=== PATIENT | male | born 1975 | race American Indian/Alaskan Native ===

== ENCOUNTER 2019-02-13 09:27 | Inpatient (IN) | payer OTHER ==
[2019-02-13 10:24] LABS: Basophils % (Auto) 0.1 % (0.0-1.8); Hematocrit 42.2 % (35.5-45.6); Hemoglobin 14.3 gm/dl (11.8-15.2); Lymphocytes # (Auto) 1.3 K/mm3 (1.2-5.4); Lymphocytes % (Auto) 15.4 % (13.4-35.0); Mean Corpuscular HGB Conc 34 % (32-34); Mean Corpuscular Volume 80 fl (84-94); Monocytes # (Auto) 0.4 K/mm3 (0.0-0.8); Monocytes % (Auto) 4.3 % (0.0-7.3); Platelet Count 386 K/mm3 (140-440); Red Blood Count 5.27 M/mm3 (3.65-5.03); Red Cell Distribution Width 14.5 % (13.2-15.2)
[2019-02-13 10:39] LABS: Bacteria,Urine 1+ /HPF (Negative); Bilirubin,Urine NEG (Negative); Blood,Urine SM (Negative); Color,Urine Yellow (Yellow); Mucus,Urine 2+ /HPF; Urobilinogen,Urine < 2.0 mg/dL (<2.0)
[2019-02-13 10:51] LABS: Alanine Aminotransferase 14 units/L (7-56); Albumin 4.5 g/dL (3.9-5); BUN/Creatinine Ratio 8; Blood Urea Nitrogen 9 mg/dL (9-20); Calcium 9.5 mg/dL (8.4-10.2); Hemolysis Index 7
[2019-02-13] MEDS ORDERED: ZOFRAN IV ONE (11:23)
[2019-02-13] MEDS ORDERED: TORADOL IV ONE (11:23)
[2019-02-13] MEDS ORDERED: NACL 0.9% 1000 ML 1,000 ML IV ONE (11:23)
[2019-02-13] MEDS ORDERED: PEPCID IV ONE (11:23)
[2019-02-13] MEDS ORDERED: MORPHINE IV ONE (11:23)
--- NOTE | 2019-02-13 13:19 | Cat Scan Report ---
PROCEDURE: CT ABDOMEN PELVIS W CON TECHNIQUE: CT examination of the abdomen and pelvis was performed after the IV injection of iodinated nonionic contrast. CT DOSE LENGTH PRODUCT: 2807.3 mGycm HISTORY: RIGHT SIDED ABD PAIN WITH nv COMPARISONS: None . FINDINGS: No acute lung base finding. No acute fracture. Nonspecific diffusely decreased density of liver parenchyma may reflect fatty infiltration. No visual ized focal liver lesion. There is slight focal fatty sparing adjacent to the gallbladder fossa. No gallbladder wall thickening or CT evidence of gallstone. There is suggestion of slight pericholecy stic fluid, nonspecific. Normal caliber common bile duct. Normal-appearing adrenals, pancreas, and spleen. Intact normal caliber abdominal aorta and IVC. Nonspecific, smoothly marginated, simple appearing, low density bilateral renal lesions are statistic ally most likely cysts. They are too small to characterize. No renal calculus or hydronephrosis. Othe rwise normal-appearing kidneys and visible ureteral segments. Intact abdominal wall without ventral h ernia. No retroperitoneal adenopathy. No mesenteric mass. Normal-appearing stomach and duodenum. No s mall bowel distention in the abdomen and pelvis. No pelvic free fluid. Normal-appearing urinary bladder, prostate, seminal vesicles, and rectum. Dominga l-appearing cecum and terminal ileum. Nonspecific intestinal fatty mural stratification is present. It involves the descending and sigmoid colon. No free air or colonic distention. No gross ascites. There is nonspecific prominence of the appendix up to 10 mm diameter. The appendix wall appears sligh tly thickened in variable locations. Suggestion of adjacent trace fat stranding and trace pericolic g utter free fluid. This may reflect mild inflammatory change. No appendicolith. No abnormal fluid chris ection adjacent to the appendix. IMPRESSION: Nonspecific subtle findings in the region of the gallbladder and appendix may reflect mild inflammati on of either or both. Correlate with region of maximal tenderness. Suggestion of hepatic steatosis with mild focal fatty sparing adjacent to gallbladder fossa Nonspecific fatty mural stratification in the descending and sigmoid colon may be related to diet, luis dy habitus, or chronic colitis. The differential includes inflammatory bowel disease. This document is electronically signed by Baljeet Gagnon MD., February 13 2019 01:17:13 PM ET
--- NOTE | 2019-02-13 14:22 | Emergency Department Report ---
ED Abdominal Pain HPI - General Chief Complaint: Abdominal Pain Stated Complaint: STOMACH PAIN Time Seen by Provider: 02/13/19 11:15 Source: patient Mode of arrival: Ambulatory Limitations: No Limitations - History of Present Illness Initial Comments: Patient is a 43-year-old -Japanese male who is presenting with right- sided abdominal pain. Patient states that pain started late last night approximately 11PM. Patient states that the pain is 9 out of 10 in severity and progressively worsening. Patient states since he started having the pain he also has been very nauseous and vomited numerous times. Patient states he has had several bowel movements but he denies diarrhea. Patient states after vomiting his pain does subside re-flea however it didn't return. Patient denies fevers chills cough cold congestion at this time. Patient states the pain does not migrate to the back. Severity scale (0 -10): 0 - Related Data Allergies Allergy/AdvReac Type Severity Reaction Status Date / Time No Known Allergies Allergy Unverified 02/13/19 09:34 ED Review of Systems ROS: Stated complaint: STOMACH PAIN Other details as noted in HPI Comment: All other systems reviewed and negative ED Past Medical Hx - Past Medical History Previous Medical History?: No - Surgical History Past Surgical History?: No - Social History Smoking Status: Never Smoker Substance Use Type: None ED Physical Exam - General Limitations: No Limitations General appearance: alert, in no apparent distress - Head Head exam: Present: atraumatic, normocephalic - Eye Eye exam: Present: normal appearance - ENT ENT exam: Present: mucous membranes moist - Neck Neck exam: Present: normal inspection - Respiratory Respiratory exam: Present: normal lung sounds bilaterally. Absent: respiratory distress, wheezes, rales, rhonchi - Cardiovascular Cardiovascular Exam: Present: regular rate, normal rhythm, normal heart sounds. Absent: systolic murmur, diastolic murmur, rubs, gallop - GI/Abdominal GI/Abdominal exam: Present: soft, tenderness (patient's abdomen is tender in the right upper and lower quadrants.), normal bowel sounds. Absent: distended, guarding, rebound, organomegaly - Rectal Rectal exam: Present: deferred - Extremities Exam Extremities exam: Present: normal inspection - Back Exam Back exam: Present: normal inspection - Neurological Exam Neurological exam: Present: alert, oriented X3 - Psychiatric Psychiatric exam: Present: normal affect, normal mood - Skin Skin exam: Present: warm, dry, intact, normal color. Absent: rash ED Course Vital Signs 02/13/19 02/13/19 02/13/19 09:51 11:48 12:18 Temperature 97.8 F Pulse Rate 95 H Respiratory 16 18 16 Rate Blood Pressure 150/101 [Left] O2 Sat by Pulse 100 Oximetry 02/13/19 12:30 Temperature Pulse Rate Respiratory 16 Rate Blood Pressure [Left] O2 Sat by Pulse Oximetry - Reevaluation(s) Reevaluation #1: 02/13/19 14:22 Dr. Jones has been consulted and states she would like to look at the patient's films with the radiologist on staff herself and will also come to see the patient in person ED Medical Decision Making - Lab Data Result diagrams: 02/13/19 09:56 02/13/19 09:56 - Radiology Data [facility] [address] [place] [address] Cat Scan Report Signed Patient: SOFIA CABALLERO MR#: [id number] : 1975 Acct:[id number] Age/Sex: 43 / M ADM Date: 02/13/19 Loc: ED Attending Dr: Ordering Physician: KHRIS NG MD Date of Service: 02/13/19 Procedure(s): CT abdomen pelvis w con Accession Number(s): [id number] cc: KHRIS NG MD PROCEDURE: CT ABDOMEN PELVIS W CON TECHNIQUE: CT examination of the abdomen and pelvis was performed after the IV injection of iodinated nonionic contrast. CT DOSE LENGTH PRODUCT: 2807.3 mGycm HISTORY: RIGHT SIDED ABD PAIN WITH nv COMPARISONS: None . FINDINGS: No acute lung base finding. No acute fracture. Nonspecific diffusely decreased density of liver parenchyma may reflect fatty infiltration. No visualized focal liver lesion. There is slight focal fatty sparing adjacent to the gallbladder fossa. No gallbladder wall thickening or CT evidence of gallstone. There is suggestion of slight pericholecystic fluid, nonspecific. Normal caliber common bile duct. Normal-appearing adrenals, pancreas, and spleen. Intact normal caliber abdominal aorta and IVC. Nonspecific, smoothly marginated, simple appearing, low density bilateral renal lesions are statistically most likely cysts. They are too small to characterize. No renal calculus or hydronephrosis. Otherwise normal-appearing kidneys and visible ureteral segments. Intact abdominal wall without ventral hernia. No retroperitoneal adenopathy. No mesenteric mass. Normal-appearing stomach and duodenum. No small bowel distention in the abdomen and pelvis. No pelvic free fluid. Normal-appearing urinary bladder, prostate, seminal vesicles, and rectum. Normal-appearing cecum and terminal ileum. Nonspecific intestinal fatty mural stratification is present. It involves the descending and sigmoid colon. No free air or colonic distention. No gross ascites. There is nonspecific prominence of the appendix up to 10 mm diameter. The appendix wall appears slightly thickened in variable locations. Suggestion of adjacent trace fat stranding and trace pericolic gutter free fluid. This may reflect mild inflammatory change. No appendicolith. No abnormal fluid collection adjacent to the appendix. IMPRESSION: Nonspecific subtle findings in the region of the gallbladder and appendix may reflect mild inflammation of either or both. Correlate with region of maximal tenderness. Suggestion of hepatic steatosis with mild focal fatty sparing adjacent to gallbladder fossa Nonspecific fatty mural stratification in the descending and sigmoid colon may be related to diet, body habitus, or chronic colitis. The differential includes inflammatory bowel disease. This document is electronically signed by Baljeet Gagnon MD., February 13 2019 01:1 7:13 PM ET Transcribed By: NENO Dictated By: BALJEET GAGNON MD Electronically Authenticated By: BALJEET GAGNON MD Signed Date/Time: 02/13/19 1319 DD/ 1234 TD/TT: 02/13/19 1234 - Medical Decision Making Patient was seen by Dr. Jones and she does believe the patient has early appendicitis. Patient was made nothing by mouth was given a dose of Zosyn. Patient likely will be taken to the operating room today. Patient be admitted to the hospitalist service under Dr. Larios Critical Care Time: Yes (30) Critical care attestation.: If time is entered above; I have spent that time in minutes in the direct care of this critically ill patient, excluding procedure time. ED Disposition Clinical Impression: Acute appendicitis Qualifiers: Acute appendicitis type: with localized peritonitis Appendicitis gangrene prese nce: without gangrene Appendicitis perforation presence: without perforation Appendicitis abscess presence: without abscess Qualified Code(s): K35.30 - Acute appendicitis with localized peritonitis, without perforation or gangrene Disposition: DC-09 OP ADMIT IP TO THIS HOSP Is pt being admited?: Yes Does the pt Need Aspirin: No Condition: Stable Time of Disposition: 15:07
[2019-02-13] MEDS ORDERED: ZOSYN/NS 4.5GM/100ML 4.5 GM/100 ML VIAL IV ONE (14:23)
[2019-02-13] MEDS ORDERED: D5NS 1,000 ML IV SCH (16:00)
--- NOTE | 2019-02-13 16:23 | Consultation ---
History of Present Illness Consult date: 02/13/19 Reason for consult: abdominal pain Chief complaint: abdominal pain - History of present illness History of present illness: 43 yo M with no PMHx or PSHx presents to ER with acute onset crampy R sided abdo carlos pain that started at 11pm last night. Pain was located in the mid right abdomen and did not radiate. He states the pain gradually worsened and prompted him to come to ER. He also had associated n/v. +chills. His last meal was yesterday evening. He has never had pain like this before. No CP, SOB. He c/o constipation. At this time his pain is much better because of pain medications given in ED. Past History Past Medical History: No medical history Past Surgical History: No surgical history Social history: no significant social history Family history: no significant family history Medications and Allergies Allergies Allergy/AdvReac Type Severity Reaction Status Date / Time No Known Allergies Allergy Unverified 02/13/19 09:34 Home Medications Medication Instructions Recorded Confirmed Last Taken Type No Known Home Medications [No 02/13/19 02/13/19 Unknown History Reported Home Medications] Active Meds: Active Medications Dextrose/Sodium Chloride (D5ns) 1,000 mls @ 150 mls/hr IV DIRECT ESTEPHANIE Review of Systems All systems: negative (10 pt ROS performed and negative except for that listed in HPI) Exam Vital Signs Temp Pulse Resp BP Pulse Ox 97.8 F 95 H 16 150/101 100 02/13/19 09:51 02/13/19 09:51 02/13/19 09:51 02/13/19 09:51 02/13/19 09:51 Narrative exam: Gen: AAOx3. NAD ENT: No scleral icterus or conjunctival pallor CV: s1, S2+ Resp: even and unlabored Abd: soft, ND, mild discomfort on palpation of right mid abdomen Ext: no c/c/e Results - Labs 02/13/19 09:56 02/13/19 09:56 Abnormal lab results 02/13/19 02/13/19 Range/Units 09:56 09:56 RBC 5.27 H (3.65-5.03) M/mm3 MCV 80 L (84-94) fl MCH 27 L (28-32) pg Seg Neutrophils % 80.2 H (40.0-70.0) % Glucose 125 H (75-100) mg/dL Total Protein 8.3 H (6.3-8.2) g/dL Diabetes panel 02/13/19 Range/Units 09:56 Sodium 140 (137-145) mmol/L Potassium 4.4 (3.6-5.0) mmol/L Chloride 101.9 (98-107) mmol/L Carbon Dioxide 24 (22-30) mmol/L BUN 9 (9-20) mg/dL Creatinine 1.2 (0.8-1.5) mg/dL Glucose 125 H (75-100) mg/dL Calcium 9.5 (8.4-10.2) mg/dL AST 21 (5-40) units/L ALT 14 (7-56) units/L Alkaline Phosphatase 70 (35-129) units/L Total Protein 8.3 H (6.3-8.2) g/dL Albumin 4.5 (3.9-5) g/dL Calcium panel 02/13/19 Range/Units 09:56 Calcium 9.5 (8.4-10.2) mg/dL Albumin 4.5 (3.9-5) g/dL Pituitary panel 02/13/19 Range/Units 09:56 Sodium 140 (137-145) mmol/L Potassium 4.4 (3.6-5.0) mmol/L Chloride 101.9 (98-107) mmol/L Carbon Dioxide 24 (22-30) mmol/L BUN 9 (9-20) mg/dL Creatinine 1.2 (0.8-1.5) mg/dL Glucose 125 H (75-100) mg/dL Calcium 9.5 (8.4-10.2) mg/dL Adrenal panel 02/13/19 Range/Units 09:56 Sodium 140 (137-145) mmol/L Potassium 4.4 (3.6-5.0) mmol/L Chloride 101.9 (98-107) mmol/L Carbon Dioxide 24 (22-30) mmol/L BUN 9 (9-20) mg/dL Creatinine 1.2 (0.8-1.5) mg/dL Glucose 125 H (75-100) mg/dL Calcium 9.5 (8.4-10.2) mg/dL Total Bilirubin 0.40 (0.1-1.2) mg/dL AST 21 (5-40) units/L ALT 14 (7-56) units/L Alkaline Phosphatase 70 (35-129) units/L Total Protein 8.3 H (6.3-8.2) g/dL Albumin 4.5 (3.9-5) g/dL - Imaging CT scan - abdomen: report reviewed, image reviewed CT scan - pelvis: report reviewed, image reviewed Assessment and Plan 43 yo M with acute appendicitis CT images reviewed with Dr. Torrez (in house radiologist) - thickened appendix with periappendiceal inflammation Plan: 1. admit to hospitalist service 2. NPO 3. IVF 4. IV abx - zosyn started in ER 5. recommend appendectomy - all risks, benefits, and alternatives to surgery discussed with patient and questions answered. Consent obtained for laparoscopic possible open appendectomy. Thank you, please call with questions.
--- NOTE | 2019-02-13 16:54 | History and Physical Report ---
History of Present Illness Date of examination: 02/13/19 Date of admission: 02/13/19 15:07 Chief complaint: Acute abdominal pain for 1 day Nausea and vomiting since yesterday History of present illness: 43-year-old -Green[place]ic male with no significant past medical history comes in for right lower quadrant pain since yesterday. Pain is 10 on 10. Sharp and intermittent. Patient had nausea and vomiting last night with 3-4 episodes Of vomiting. No fever or chills. This is the first episode of right lower quadrant pain. No recent travel. No diarrhea. Past Medical History Previous Medical History?: No Surgical History Past Surgical History?: No Social History Smoking Status: Never Smoker Substance Use Type: None Family history noncontributory Review of Systems ROS: Stated complaint: STOMACH PAIN Other details as noted in HPI Comment: All other systems reviewed and negative Past History Past Medical History: No medical history Past Surgical History: No surgical history Social history: no significant social history Family history: no significant family history Medications and Allergies Allergies Allergy/AdvReac Type Severity Reaction Status Date / Time No Known Allergies Allergy Unverified 02/13/19 09:34 Home Medications Medication Instructions Recorded Confirmed Last Taken Type No Known Home Medications [No 02/13/19 02/13/19 Unknown History Reported Home Medications] Active Meds: Active Medications Dextrose/Sodium Chloride (D5ns) 1,000 mls @ 150 mls/hr IV DIRECT ESTEPHANIE Exam - Constitutional Vitals: Temp Pulse Resp BP Pulse Ox 97.8 F 95 H 16 150/101 100 02/13/19 09:51 02/13/19 09:51 02/13/19 12:30 02/13/19 09:51 02/13/19 09:51 General appearance: Present: mild distress (secondary to pain), well-nourished - EENT Eyes: Present: PERRL ENT: hearing intact, clear oral mucosa - Neck Neck: Present: supple, normal ROM - Respiratory Respiratory effort: normal Respiratory: bilateral: CTA - Cardiovascular Heart rate: 90 Rhythm: regular Heart Sounds: Present: S1 & S2. Absent: rub, click - Extremities Extremities: pulses symmetrical, No edema Peripheral Pulses: within normal limits - Abdominal General gastrointestinal: Present: soft, tender, non-distended, normal bowel sounds Localized gastrointestinal: tender: RLQ (right lower quadrant tenderness), guarding: RLQ, rebound: RLQ Male genitourinary: Present: normal - Integumentary Integumentary: Present: clear, warm, dry - Musculoskeletal Musculoskeletal: gait normal, strength equal bilaterally - Psychiatric Psychiatric: appropriate mood/affect, intact judgment & insight - Neurologic Neurologic: CNII-XII intact, moves all extremities - Allied Health Allied health notes reviewed: nursing, case management Results - Labs CBC & Chem 7: 02/13/19 09:56 02/13/19 09:56 Labs: Laboratory Last Values WBC 8.5 K/mm3 (4.5-11.0) 02/13/19 09:56 RBC 5.27 M/mm3 (3.65-5.03) H 02/13/19 09:56 Hgb 14.3 gm/dl (11.8-15.2) 02/13/19 09:56 Hct 42.2 % (35.5-45.6) 02/13/19 09:56 MCV 80 fl (84-94) L 02/13/19 09:56 MCH 27 pg (28-32) L 02/13/19 09:56 MCHC 34 % (32-34) 02/13/19 09:56 RDW 14.5 % (13.2-15.2) 02/13/19 09:56 Plt Count 386 K/mm3 (140-440) 02/13/19 09:56 Lymph % (Auto) 15.4 % (13.4-35.0) 02/13/19 09:56 [place] % (Auto) 4.3 % (0.0-7.3) 02/13/19 09:56 Eos % (Auto) 0.0 % (0.0-4.3) 02/13/19 09:56 Baso % (Auto) 0.1 % (0.0-1.8) 02/13/19 09:56 Lymph # 1.3 K/mm3 (1.2-5.4) 02/13/19 09:56 [place] # 0.4 K/mm3 (0.0-0.8) 02/13/19 09:56 Eos # 0.0 K/mm3 (0.0-0.4) 02/13/19 09:56 Baso # 0.0 K/mm3 (0.0-0.1) 02/13/19 09:56 Seg Neutrophils % 80.2 % (40.0-70.0) H 02/13/19 09:56 Seg Neutrophils # 6.8 K/mm3 (1.8-7.7) 02/13/19 09:56 Sodium 140 mmol/L (137-145) 02/13/19 09:56 Potassium 4.4 mmol/L (3.6-5.0) 02/13/19 09:56 Chloride 101.9 mmol/L (98-107) 02/13/19 09:56 Carbon Dioxide 24 mmol/L (22-30) 02/13/19 09:56 19 mmol/L 02/13/19 09:56 BUN 9 mg/dL (9-20) 02/13/19 09:56 1.2 mg/dL (0.8-1.5) 02/13/19 09:56 Estimated GFR > 60 ml/min 02/13/19 09:56 8 % 02/13/19 09:56 Glucose 125 mg/dL (75-100) H 02/13/19 09:56 Calcium 9.5 mg/dL (8.4-10.2) 02/13/19 09:56 0.40 mg/dL (0.1-1.2) 02/13/19 09:56 AST 21 units/L (5-40) 02/13/19 09:56 ALT 14 units/L (7-56) 02/13/19 09:56 70 units/L (35-129) 02/13/19 09:56 8.3 g/dL (6.3-8.2) H 02/13/19 09:56 4.5 g/dL (3.9-5) 02/13/19 09:56 1.2 % 02/13/19 09:56 Yellow (Yellow) 02/13/19 10:21 Slightly-cloudy (Clear) 02/13/19 10:21 5.0 (5.0-7.0) 02/13/19 10:21 Ur Specific Duarte 1.030 (1.003-1.030) 02/13/19 10:21 30 mg/dl mg/dL (Negative) 02/13/19 10:21 Neg mg/dL (Negative) 02/13/19 10:21 Tr mg/dL (Negative) 02/13/19 10:21 Sm (Negative) 02/13/19 10:21 Neg (Negative) 02/13/19 10:21 Neg (Negative) 02/13/19 10:21 < 2.0 mg/dL (<2.0) 02/13/19 10:21 Ur Leukocyte Esterase Neg (Negative) 02/13/19 10:21 1.0 /HPF (0.0-6.0) 02/13/19 10:21 26.0 /HPF (0.0-6.0) 02/13/19 10:21 1+ /HPF (Negative) 02/13/19 10:21 2+ /HPF 02/13/19 10:21 Short CBC 02/13/19 Range/Units 09:56 WBC 8.5 (4.5-11.0) K/mm3 Hgb 14.3 (11.8-15.2) gm/dl Hct 42.2 (35.5-45.6) % Plt Count 386 (140-440) K/mm3 BMP 02/13/19 09:56 Sodium 140 Potassium 4.4 Chloride 101.9 Carbon Dioxide 24 BUN 9 Creatinine 1.2 Glucose 125 H Calcium 9.5 Liver Function 02/13/19 Range/Units 09:56 Total Bilirubin 0.40 (0.1-1.2) mg/dL AST 21 (5-40) units/L ALT 14 (7-56) units/L Alkaline Phosphatase 70 (35-129) units/L Albumin 4.5 (3.9-5) g/dL Urine 02/13/19 Range/Units 10:21 Urine Color Yellow (Yellow) Urine pH 5.0 (5.0-7.0) Ur Specific Duarte 1.030 (1.003-1.030) Urine Protein 30 mg/dl (Negative) mg/dL Urine Glucose (UA) Neg (Negative) mg/dL - Imaging and Cardiology Imaging and Cardiology: CT of the abdomen IMPRESSION: Nonspecific subtle findings in the region of the gallbladder and appendix may reflect mild inflammation of either or both. Correlate with region of maximal tenderness. Suggestion of hepatic steatosis with mild focal fatty sparing adjacent to gallbladder fossa Nonspecific fatty mural stratification in the descending and sigmoid colon may be related to diet, body habitus, or chronic colitis. The differential includes inflammatory bowel disease. Assessment and Plan Advance Directives: Yes (full code) VTE prophylaxis?: Chemical Plan of care discussed with patient/family: Yes - Patient Problems (1) Acute appendicitis Current Visit: Yes Status: Acute Qualifiers: Acute appendicitis type: with localized peritonitis Appendicitis gangrene presence: without gangrene Appendicitis perforation presence: without perforation Appendicitis abscess presence: without abscess Qualified Code(s): K35.30 - Acute appendicitis with localized peritonitis, without perforation or gangrene Plan to address problem: Patient started on IV antibiotics IV fluids Surgery consult requested Pain control (2) DVT prophylaxis Current Visit: Yes Status: Acute Plan to address problem: On Lovenox and GI prophylaxis
[2019-02-13] MEDS ORDERED: SODIUM CHLORIDE FLUSH SYRINGE 10 ML IV PRN (17:03)
[2019-02-13] MEDS ORDERED: ZOFRAN IV PRN ×2 (17:03→18:00)
[2019-02-13] MEDS ORDERED: DILAUDID IV PRN (17:03)
[2019-02-13] MEDS ORDERED: TYLENOL PO PRN (17:03)
[2019-02-13] MEDS ORDERED: BLOXIVERZ ONE (17:45)
[2019-02-13] MEDS ORDERED: ZEMURON IV ONE (17:45)
[2019-02-13] MEDS ORDERED: ROBINUL ONE ×2 (17:45→18:35)
[2019-02-13] MEDS ORDERED: XYLOCAINE MPF 2% ONE (17:45)
[2019-02-13] MEDS ORDERED: ZOFRAN ONE (17:45)
[2019-02-13] MEDS ORDERED: DECADRON ONE (17:45)
[2019-02-13] MEDS ORDERED: SUBLIMAZE ONE (17:46)
[2019-02-13] MEDS ORDERED: DIPRIVAN 10 MG/ML IV ONE (17:46)
[2019-02-13] MEDS ORDERED: SUBLIMAZE IV PRN (18:00)
--- NOTE | 2019-02-13 18:01 | Anesthesia Day of Surgery ---
Anesthesia Day of Surgery - Day of Surgery Patient Examined: Yes Patient H&P Reviewed: Yes Patient is NPO: Yes
--- NOTE | 2019-02-13 18:02 | Anesthesia Consultation ---
Anesthesia Consult and Med Hx Date of service: 02/13/19 - Airway Anesthetic Teeth Evaluation: Good, Crowns ROM Head & Neck: Adequate Mental/Hyoid Distance: Adequate Mallampati Class: Class II Intubation Access Assessment: Good - Pre-Operative Health Status ASA Pre-Surgery Classification: ASA1, Emergency Proposed Anesthetic Plan: General
[2019-02-13] MEDS ORDERED: MARCAINE 0.5% INFILTRATI ONE ×2 (18:09→18:13)
[2019-02-13] MEDS ORDERED: XYLOCAINE 1% 20 mL INFILTRATI ONE (18:09)
[2019-02-13] MEDS ORDERED: XYLOCAINE 1% 20 mL ONE (18:13)
[2019-02-13] MEDS ORDERED: PERCOCET 5/325 PO PRN (18:44)
[2019-02-13] MEDS ORDERED: TORADOL ONE (18:44)
--- NOTE | 2019-02-13 18:44 | Post Operative Note ---
Date of procedure: 02/13/19 Pre-op diagnosis: acute appendicitis Post-op diagnosis: same Findings: thickened and dilated appendix Procedure: laparoscopic appendectomy Anesthesia: MARVEL, local Surgeon: SAMI TATE [employer] Trainer: RAY AGUIAR Estimated blood loss: minimal Pathology: list (appendix) Specimen disposition: to lab Condition: stable Disposition: PACU
[2019-02-13] MEDS ORDERED: MORPHINE IV PRN (18:46)
[2019-02-13] MEDS ORDERED: BRIDION IV ONE (18:50)
--- NOTE | 2019-02-13 19:56 | Operative Report ---
PREOPERATIVE DIAGNOSIS: Acute appendicitis. POSTOPERATIVE DIAGNOSIS: Acute appendicitis. FINDINGS: Thickened and dilated appendix. PROCEDURE: Laparoscopic appendectomy. ANESTHESIA: General endotracheal anesthesia, local. SURGEON: Cara Jones DO. CLIP LOADING MACHINE ADJUSTER: Rajiv Rascon MD. ESTIMATED BLOOD LOSS: Minimal. PATHOLOGY: Appendix. SPECIMEN DISPOSITION: To the lab. CONDITION AND DISPOSITION: The patient is stable to PACU. HISTORY OF PRESENT ILLNESS AND INDICATION: The patient is a 43-year-old male who presented to the hospital with complaints of acute onset right-sided abdominal pain. He was found to have a normal white blood cell count; however, elevated neutrophils and on CT scan, a thickened and dilated appendix with periappendiceal fat stranding. He was diagnosed with appendicitis. Appendectomy was recommended and all risks, benefits, alternatives to surgery were discussed with the patient. All questions were answered and consent obtained. PROCEDURE IN DETAIL: The patient was identified in the preoperative area and taken back to the operating room and placed on the operating table in supine position. After anesthesia was induced, the left arm was tucked with all bony prominences padded. A Gant catheter was sterilely placed by the circulating nurse. The abdomen was then prepped and draped in the usual sterile fashion. A timeout was performed. Local anesthetic was infiltrated into all skin incision sites. A 5-mm incision was made above the umbilicus using an 11 blade, through which a Veress needle was inserted. The Veress needle position was confirmed using saline drop test. Once the abdomen was insufflated to 15 mmHg, the Veress needle was removed and a 5-mm Optiview trocar was placed through this incision. The right lower quadrant was visualized and the cecum was seen. There was no free fluid. The patient was placed in Trendelenburg and tilted to the left. A 5 mm suprapubic and 12 mm left lower quadrant trocars were then placed under direct visualization. The appendix was visualized and grasped. The appendix did appear thickened and dilated. There were some lateral adhesions to the appendix, which were taken down using the Harmonic scalpel. The mesentery of the appendix was ligated using the Harmonic scalpel and ligation carried down to the base of the appendix. Once the base was encountered, it was transected using an [place] Flex 45 mm white load stapler. The appendix was placed into an EndoCatch bag and removed via the 12-mm port. The staple line and mesentery were then investigated and checked for hemostasis. There was some very slow oozing at the edge of the staple line, which was controlled using clips. There was no bleeding after the application of clips. The pelvis was inspected and there was no free fluid. The 12-mm port was then removed and the fascia closed with 0 Vicryl interrupted stitch using Edvin-Leonel device. The remaining ports were removed under direct visualization and the skin incisions were closed with 4-0 Monocryl subcuticular stitches and skin glue. Local anesthetic was once again infiltrated into the skin. At the end of the case, all sponge, instrument, sharp counts were correct x 2. The Gant catheter was removed and the patient was awoken from anesthesia, extubated, and taken to PACU in stable condition. JOB# [id number] JAYLON/LIANA
[2019-02-13] MEDS: TORADOL IV SCH (21:39)
[2019-02-13] MEDS: HEPARIN SUB-Q SCH (21:40)
[2019-02-13] MEDS: SODIUM CHLORIDE FLUSH SYRINGE 10 ML IV SCH (21:58)
[2019-02-13] MEDS ORDERED: PEPCID IV SCH (22:00)
[2019-02-14] MEDS: TORADOL IV SCH ×2 (04:12→10:46)
[2019-02-14 05:20] LABS: Basophils % (Auto) 0.1 % (0.0-1.8); Hematocrit 37.7 % (35.5-45.6); Hemoglobin 12.4 gm/dl (11.8-15.2); Lymphocytes % (Auto) 16.1 % (13.4-35.0); Mean Corpuscular HGB Conc 33 % (32-34); Mean Corpuscular Volume 81 fl (84-94); Monocytes # (Auto) 0.3 K/mm3 (0.0-0.8); Monocytes % (Auto) 4.7 % (0.0-7.3); Platelet Count 328 K/mm3 (140-440); Red Blood Count 4.63 M/mm3 (3.65-5.03); Red Cell Distribution Width 14.7 % (13.2-15.2)
[2019-02-14 05:45] LABS: Alanine Aminotransferase 15 units/L (7-56); Albumin 3.4 g/dL (3.9-5); BUN/Creatinine Ratio 8; Blood Urea Nitrogen 11 mg/dL (9-20); Calcium 8.6 mg/dL (8.4-10.2); Hemolysis Index 4
--- NOTE | 2019-02-14 10:04 | Progress Note ---
Assessment and Plan - Patient Problems (1) Acute appendicitis Current Visit: Yes Status: Acute Qualifiers: Acute appendicitis type: with localized peritonitis Appendicitis gangrene presence: without gangrene Appendicitis perforation presence: without perforation Appendicitis abscess presence: without abscess Qualified Code(s): K35.30 - Acute appendicitis with localized peritonitis, without perforation or gangrene Plan to address problem: Pt stable. s/p lap appy. appears to be doing well. tolerating diet. ok to d/c home 1) f/u with Dr. Jones in about 1 week 2) no abx needed at home 3) May shower tomorrow. Pat dry wounds. 4) no heavy lifting/strenuous activity until cleared by surgeon Please call with questions. Subjective Date of service: 02/14/19 Patient Reports: Positive: no new complaints, feels better, tolerating a regular diet. Negative: nausea, vomiting Objective Vital Signs - 12hr 02/14/19 02/14/19 02/14/19 02:03 04:38 04:39 Temperature 98.0 F Pulse Rate 83 84 72 Respiratory 16 Rate Blood Pressure 99/47 O2 Sat by Pulse 96 95 96 Oximetry - General physical appearance no distress, no pain, other (looks well. playing with iPad in bed) - Eyes normal occular movement - Respiratory normal expansion, clear to auscultation - Abdomen soft, not tender, not distended, not guarding, not rigid, surgical scars (C/D/I) - Integumentary no rash, no growths, no abnormal pigmentation - Psychiatric oriented to time, oriented to person, oriented to place, speech is normal, memory intact - Labs 02/14/19 04:21 02/14/19 04:21 Diabetes panel 02/13/19 02/13/19 02/14/19 Range/Units 09:56 20:43 04:21 Sodium 140 139 (137-145) mmol/L Potassium 4.4 4.4 (3.6-5.0) mmol/L Chloride 101.9 106.2 (98-107) mmol/L Carbon Dioxide 24 23 (22-30) mmol/L BUN 9 11 (9-20) mg/dL Creatinine 1.2 1.4 (0.8-1.5) mg/dL Glucose 125 H 133 H (75-100) mg/dL Hemoglobin A1c 5.6 (4-6) % Calcium 9.5 8.6 (8.4-10.2) mg/dL AST 21 21 (5-40) units/L ALT 14 15 (7-56) units/L Alkaline Phosphatase 70 56 (35-129) units/L Total Protein 8.3 H 6.4 D (6.3-8.2) g/dL Albumin 4.5 3.4 L (3.9-5) g/dL Calcium panel 02/13/19 02/14/19 Range/Units 09:56 04:21 Calcium 9.5 8.6 (8.4-10.2) mg/dL Albumin 4.5 3.4 L (3.9-5) g/dL Pituitary panel 02/13/19 02/14/19 Range/Units 09:56 04:21 Sodium 140 139 (137-145) mmol/L Potassium 4.4 4.4 (3.6-5.0) mmol/L Chloride 101.9 106.2 (98-107) mmol/L Carbon Dioxide 24 23 (22-30) mmol/L BUN 9 11 (9-20) mg/dL Creatinine 1.2 1.4 (0.8-1.5) mg/dL Glucose 125 H 133 H (75-100) mg/dL Calcium 9.5 8.6 (8.4-10.2) mg/dL Adrenal panel 02/13/19 02/14/19 Range/Units 09:56 04:21 Sodium 140 139 (137-145) mmol/L Potassium 4.4 4.4 (3.6-5.0) mmol/L Chloride 101.9 106.2 (98-107) mmol/L Carbon Dioxide 24 23 (22-30) mmol/L BUN 9 11 (9-20) mg/dL Creatinine 1.2 1.4 (0.8-1.5) mg/dL Glucose 125 H 133 H (75-100) mg/dL Calcium 9.5 8.6 (8.4-10.2) mg/dL Total Bilirubin 0.40 0.40 (0.1-1.2) mg/dL AST 21 21 (5-40) units/L ALT 14 15 (7-56) units/L Alkaline Phosphatase 70 56 (35-129) units/L Total Protein 8.3 H 6.4 D (6.3-8.2) g/dL Albumin 4.5 3.4 L (3.9-5) g/dL
[2019-02-14] MEDS: HEPARIN SUB-Q SCH (10:46)
[2019-02-14] MEDS: SODIUM CHLORIDE FLUSH SYRINGE 10 ML IV SCH (10:46)
[2019-02-14 11:04] VITALS: BP 94/46
--- NOTE | 2019-02-14 14:03 | Discharge Summary ---
Providers - Providers Date of Admission: 02/13/19 15:07 Date of discharge: 02/14/19 Attending physician: JOSELITO GARVEY 02/13/19 17:03 Consult to Physician [CONS] Routine Comment: DR HERNANDEZ GUERIN W/ DR TATE @[id number] Consulting Provider: SAMI TATE Physician Instructions: Reason For Exam: RLQ pain Primary care physician: JUSTICE VYAS MD Hospitalization Reason for admission: Right-sided abdominal pain along with nausea vomiting/acute appendicitis Condition: Stable Pertinent studies: CT abdomen and pelvis with contrast, findings consistent with nonspecific subtle findings in the region of gallbladder appendix measuring mild inflammation of both or either of them Procedures: Laparoscopic appendectomy for acute appendicitis. Hospital course: 43 yo M with no PMHx or PSHx presents to ER with acute onset crampy R sided abdominal pain that started at 11pm last night of the day of admission. Pain was located in the mid right abdomen and did not radiate. He states the pain gradually worsened and prompted him to come to ER. He also had associated n/v. +chills. His last meal was yesterday evening. He has never had pain like this before. No CP, SOB. He c/o constipation. At this time his pain is much better because of pain medications given in ED.CT abdomen and pelvis with contrast, findings consistent with nonspecific subtle findings in the region of gallbladder appendix measuring mild inflammation of both or either of them Patient was admitted symptomatically managed evaluated by surgery Subsequently underwent laparoscopic appendectomy for acute appendicitis Patient had uncomplicated postop recovery, started to decrease advanced as tolerated Patient's symptoms significantly improved Today's comfortable no new complaints vital signs stable Physical examination is unremarkable Clear by surgery for discharge and follow up in the office per schedule Patient is hemodynamically and clinically stable at discharge Discharge diagnosis; and treatment --Acute appendicitis; status post laparoscopic appendectomy --DVT prophylaxis; SCD/Lovenox Patient is hemodynamically stable at discharge Disposition: DC-01 TO HOME OR SELFCARE Time spent for discharge: 32 min Core Measure Documentation - Palliative Care Palliative Care/ Comfort Measures: Not Applicable - Core Measures Any of the following diagnoses?: none Exam - Constitutional Vitals: Temp Pulse Resp BP Pulse Ox 98.4 F 70 18 94/46 96 02/14/19 07:20 02/14/19 07:20 02/14/19 07:20 02/14/19 07:20 02/14/19 04:39 General appearance: Present: no acute distress, well-nourished - EENT Eyes: Present: PERRL, EOM intact - Neck Neck: Present: supple, normal ROM - Respiratory Respiratory effort: normal Respiratory: negative: rales, rhonchi, wheezing - Cardiovascular Rhythm: regular Heart Sounds: Present: S1 & S2 - Extremities Extremities: no ischemia, No edema - Abdominal General gastrointestinal: Present: soft, non-tender, non-distended, normal bowel sounds - Integumentary Integumentary: Present: clear, warm - Musculoskeletal Musculoskeletal: strength equal bilaterally - Psychiatric Psychiatric: appropriate mood/affect - Neurologic Neurologic: CNII-XII intact, moves all extremities Plan Activity: advance as tolerated Diet: regular Additional Instructions: f/u with Dr. Tate in about 1 week. no abx needed at home. May shower tomorrow. Pat dry wounds. no heavy lifting/strenuous activity until cleared by surgeon Follow up with: JUSTICE VYAS MD [Primary Care Provider] - 3-5 Days SAMI TATE DO [Staff Physician] - 7 Days Prescriptions: Ketorolac [Toradol] 10 mg PO BID PRN #10 tablet PRN Reason: Pain
== END 2019-02-14 15:50 | disposition home or self-care (01) | DRG 343 ==
LOC: ED 09:27 → 3A 15:07 → 3B-SURG 16:42
PROVIDERS: ADMIT Internal Medicine; ATTEND Internal Medicine
PROC: 0DTJ4ZZ Resection of Appendix, Percutaneous Endoscopic Approach (ICD-10-PCS; principal; 2019-02-13)
DX: K35.30 Acute appendicitis with localized peritonitis, without perforation or gangrene (principal); R73.9 Hyperglycemia, unspecified
CPT/HCPCS: 36415; 74177; 80053; 81001; 83036; 85025; 88304; 96374; 96375; 99291; G0378; J1100; J1644; J1885; J2270; J2405; J2543; J2704; J2710; J3010; J7030; J7042; Q9967